=== PATIENT | male | born 1990 | race Caucasian/White ===

== ENCOUNTER 2020-01-03 23:14 | Emergency (ER) | payer OTHER ==
[~2020-01-03] VITALS: Ht 172.7 cm; Wt 68.0 kg
--- NOTE | 2020-01-03 23:51 | NUR ---
Dr. Ziegler at bedside for MSE.
[2020-01-04] MEDS ORDERED: TDAP DIPH,PERTUSS,TET VAC/PF 0.5 ML DISP.SYRIN IM ONE ×2
--- NOTE | 2020-01-04 00:07 | NUR ---
Xray at bedside.
[2020-01-04] MEDS ORDERED: HYDROCODONE/APAP 5-325MG TABLET ONE (01:35)
[2020-01-04] MEDS ORDERED: CEphaleXIN 500 MG CAPSULE ONE (01:36)
--- NOTE | 2020-01-04 01:39 | NUR ---
Patient discharged to home in stable conditon. Written and verbal after care instructions given. Patient verbalizes understanding of instructions. Pt ambulated out of ER with steady gait, no acute signs of distress, VSS, all belongings taken.
[2020-01-04 01:40] VITALS: BP 120/85
[2020-01-04] MEDS ORDERED: HYDROCODONE/APAP 5-325MG TABLET PO ONE (01:45)
[2020-01-04] MEDS ORDERED: CEphaleXIN 500 MG CAPSULE PO ONE (01:45)
== END 2020-01-04 01:46 | disposition home or self-care (01) ==
LOC: ER 23:18
DX: S61.214A Laceration without foreign body of right ring finger without damage to nail, initial encounter (principal); S61.212A Laceration without foreign body of right middle finger without damage to nail, initial encounter; S61.216A Laceration without foreign body of right little finger without damage to nail, initial encounter; F12.10 Cannabis abuse, uncomplicated; F17.200 Nicotine dependence, unspecified, uncomplicated; W01.0XXA Fall on same level from slipping, tripping and stumbling without subsequent striking against object, initial encounter; Y93.89 Activity, other specified; Y92.89 Other specified places as the place of occurrence of the external cause; Y99.8 Other external cause status
CPT/HCPCS: 73130; 90715; A4217; A4663

== ENCOUNTER 2020-01-05 14:34 | Emergency (ER) | payer OTHER ==
[~2020-01-05] VITALS: Ht 172.7 cm; Wt 70.8 kg
--- NOTE | 2020-01-05 15:01 | NUR ---
Patient discharged to home in stable condition. Written and verbal after care instructions given to patient. Patient verbalized understanding & compliance of instructions. Follow-up with your hand doctor and/ primary doctor.
== END 2020-01-05 15:02 | disposition home or self-care (01) ==
LOC: ER 14:41
DX: S61.214D Laceration without foreign body of right ring finger without damage to nail, subsequent encounter (principal); F17.200 Nicotine dependence, unspecified, uncomplicated; F12.10 Cannabis abuse, uncomplicated; X58.XXXD Exposure to other specified factors, subsequent encounter
CPT/HCPCS: A4663